=== PATIENT | male | born 1935 | race Caucasian/White ===

== ENCOUNTER 2016-11-03 | Inpatient (IN) | payer OTHER ==
[~2016-11-03] VITALS: Ht 177.8 cm; Wt 122.0 kg
[~2016-11-03] MED LIST: ALDACTONE25 MG PO; AMBIEN10 MG; AMBIEN10 MG PO; APRESOLINE; APRESOLINE50 MG PO; ASPIR 8181 MG; ASPIRIN81 M2 PO; AVAPRO300 MG; AVAPRO300 MG PO; BYSTOLIC10 MG; BYSTOLIC10 MG PO; CARBIDOPA-LEVO1 EAC3; CARBIDOPA/LEVO1 EACH PO; CATAPRES0.2 MG PO; CATAPRES0.3 MG; CELEXA20 MG PO; CITALOPRAM HBR20 M1; FISH OIL SOFTG1 EACH; GLYCOLAX17 GM; IMDUR60 MG; IMDUR60 MG PO; KLOR-CON 1010 MEQ; LASIX40 MG; LASIX40 MG PO; LEVAQUIN500 MG PO; LOW DOSE ASPIRI81 M2 PO; METHIMAZOLE10 MG; METHIMAZOLE10 MG PO; METHIMAZOLE5 MG PO; MIRALAX17 GM PO; NITROSTAT0.4 MG; NITROSTAT0.4 MG SL; PRESERVISION T1 EACH PO; VITAMIN D1000 INTUN PO; ZOCOR40 MG; ZOCOR40 MG PO
[2016-11-03 00:48] LABS: EOSINOPHIL (%) 0 % (0-5); HEMATOCRIT 34.6 % (38.0-50.0); IMMATURE GRANULOCYTE (%) 1.2 % (0.0-0.7); IMMATURE GRANULOCYTE COUNT 0.2 K/uL; LYMPHOCYTE COUNT 0.5 K/uL (1.0-2.8); MCHC 33.5 G/DL (30.0-36.0); MCV 95.3 FL (86-99); MEAN PLAT.VOLUME 10.9 uM^3 (9.0-12.4); MONOCYTE (%) 4.7 % (3-12); MONOCYTE COUNT 0.8 K/uL (0-0.8); NEUTROPHIL (%) 90.8 % (45-76); PLATELET COUNT 118 K/uL (156-360); RBC DIS.WIDTH-CV 13.2 % (11.8-14.6); RBC DIS.WIDTH-SD 46.2 % (39-53); RED BLOOD COUNT 3.63 M/uL (4.00-5.50); WHITE BLOOD COUNT 17.6 K/uL (4.1-10.2)
[2016-11-03 00:51] LABS: BASE EXCESS 2.8 mEq/L (-3 to +3); BICARBONATE 27.9 mEq/L (22-26); CARBOXY HGB 2.1 % (0-5); METHEMOGLOBIN 1.2 % (0-1.5); PCO2 44 mm Hg (35-45); pH 7.41 (7.35-7.45)
[2016-11-03 00:54] LABS: PO2 34 mm Hg (80-100)
[2016-11-03 00:55] LABS: COMMENTS - BLOOD GASES VENOUS(MD AWARE) C+; DEVICE 840 VENT; FI02 60 %; MODE SPONT NIPPV; PEEP 5 CM/H20; PRES. SUPPORT 12 CM/H2O; SITE RR; TOTAL RESP RATE 30 resp/min
[2016-11-03 00:59] LABS: CHLORIDE 103 mEq/L (99-109); POTASSIUM 3.9 mEq/L (3.7-5.4); SODIUM 138 mEq/L (136-147)
[2016-11-03 01:00] LABS: GLUCOSE 151 mg/dL (70-99)
[2016-11-03 01:02] LABS: ANION GAP 10 MEQ/L (2-14)
[2016-11-03 01:04] LABS: GFR ESTIMATE (CALCULATED) 42 mL/min/
[2016-11-03 01:05] LABS: UREA NITROGEN (BUN) 32 mg/dL (9-23)
[2016-11-03 01:10] LABS: TROP-I INTERPRETATION NEGATIVE; TROPONIN-I 0.09 ng/mL (0.0-0.30)
[2016-11-03] MEDS ORDERED: LO-DOSE ASPIRIN81 M2 PO (01:44)
[2016-11-03] MEDS ORDERED: CARBIDOPA/LEVO1 EACH PO (01:45)
[2016-11-03] MEDS ORDERED: CLONIDINE HCL0.2 MG PO (01:46)
[2016-11-03] MEDS ORDERED: MYRBETRIQ25 MG PO (01:49)
[2016-11-03 11:14] VITALS: BP 123/64
[2016-11-03 13:22] LABS: TROP-I INTERPRETATION INDETERMINATE; TROPONIN-I 0.44 ng/mL (0.0-0.30)
[2016-11-03 15:29] VITALS: BP 154/78
[2016-11-03 19:10] LABS: TROP-I INTERPRETATION INDETERMINATE; TROPONIN-I 0.37 ng/mL (0.0-0.30)
[2016-11-03 20:11] VITALS: BP 124/58
[2016-11-04] VITALS: BP 133/64
[2016-11-04 04:00] VITALS: BP 103/65
[2016-11-04 07:38] LABS: HEMATOCRIT 33.7 % (38.0-50.0); MCH 31.2 PG (29.0-34.0); MCV 97.4 FL (86-99); MEAN PLAT.VOLUME 11.5 uM^3 (9.0-12.4); PLATELET COUNT 114 K/uL (156-360); RBC DIS.WIDTH-CV 13.6 % (11.8-14.6); RBC DIS.WIDTH-SD 48.9 % (39-53); RED BLOOD COUNT 3.46 M/uL (4.00-5.50); WHITE BLOOD COUNT 13.7 K/uL (4.1-10.2)
[2016-11-04 07:47] LABS: ALKALINE PHOSPHATASE 58 IU/L (3-129); ANION GAP 10 MEQ/L (2-14); CHLORIDE 101 MEQ/L (99-109); GFR ESTIMATE (CALCULATED) 37 mL/min/; POTASSIUM 4.1 MEQ/L (3.7-5.4); SAMPLE HEMOLYSIS CHECK 0; SAMPLE ICTERIC CHECK 0; SAMPLE LIPEMIA CHECK 0; SODIUM 140 MEQ/L (136-147); TOTAL BILIRUBIN 1.2 MG/DL (0.0-1.0); UREA NITROGEN (BUN) 31 mg/dL (9-23)
[2016-11-04 07:53] LABS: GLUCOSE 102 mg/dL (70-99)
[2016-11-04 07:54] VITALS: BP 113/65
[2016-11-04 16:01] VITALS: BP 94/60
[2016-11-04 20:05] VITALS: BP 114/68
[2016-11-05 01:10] VITALS: BP 121/73
[2016-11-05 04:00] VITALS: BP 114/74
[2016-11-05 07:51] VITALS: BP 123/76
[2016-11-05 12:21] VITALS: BP 136/78
[2016-11-05 16:01] VITALS: BP 120/77
[2016-11-05 20:00] VITALS: BP 155/81
[2016-11-06 00:49] VITALS: BP 111/72
[2016-11-06 04:00] VITALS: BP 123/74
[2016-11-06 07:30] LABS: ANION GAP 9 MEQ/L (2-14); CHLORIDE 102 MEQ/L (99-109); GFR ESTIMATE (CALCULATED) 39 mL/min/; GLUCOSE 105 mg/dL (70-99); POTASSIUM 3.8 MEQ/L (3.7-5.4); SAMPLE HEMOLYSIS CHECK 0; SAMPLE ICTERIC CHECK 0; SAMPLE LIPEMIA CHECK 0; SODIUM 140 MEQ/L (136-147); UREA NITROGEN (BUN) 35 mg/dL (9-23)
[2016-11-06] MEDS ORDERED: LEVAQUIN500 MG PO (07:44)
[2016-11-06] MEDS ORDERED: ELIQUIS2.5 MG PO (07:44)
[2016-11-06] MEDS ORDERED: IMDUR30 MG PO (07:45)
[2016-11-06] MEDS ORDERED: NITROSTAT0.4 MG SL (07:47)
[2016-11-06 07:48] LABS: HEMATOCRIT 30.8 % (38.0-50.0); MCH 31.4 PG (29.0-34.0); MCHC 32.5 G/DL (30.0-36.0); MCV 96.9 FL (86-99); MEAN PLAT.VOLUME 11.2 uM^3 (9.0-12.4); PLATELET COUNT 134 K/uL (156-360); RBC DIS.WIDTH-CV 13.2 % (11.8-14.6); RBC DIS.WIDTH-SD 47.7 % (39-53); RED BLOOD COUNT 3.18 M/uL (4.00-5.50)
[2016-11-06] MEDS ORDERED: LOSARTAN POTAS100 MG PO (07:53)
[2016-11-06 08:01] LABS: WHITE BLOOD COUNT 8.9 K/uL (4.1-10.2)
[2016-11-06 08:04] VITALS: BP 160/78
[2016-11-06] MEDS ORDERED: IMDUR60 MG PO (11:59)
== END 2016-11-06 13:05 | DRG 189 ==
LOC: EME → EDBD → EDOF 08:03 → 5SOUTH 08:03 → EDOF 08:59 → 5SOUTH 11:05
PROVIDERS: Emergency Medicine; Internal Medicine
PROC: 5A09357 Assistance with Respiratory Ventilation, Less than 24 Consecutive Hours, Continuous Positive Airway Pressure (ICD-10-PCS; principal; 2016-11-03)
DX: J96.01 Acute respiratory failure with hypoxia (principal); J18.1 Lobar pneumonia, unspecified organism; I13.0 Hypertensive heart and chronic kidney disease with heart failure and stage 1 through stage 4 chronic kidney disease, or unspecified chronic kidney disease; I50.33 Acute on chronic diastolic (congestive) heart failure; N18.3 Chronic kidney disease, stage 3 (moderate); I95.2 Hypotension due to drugs; T46.5X5A Adverse effect of other antihypertensive drugs, initial encounter; I48.0 Paroxysmal atrial fibrillation; E66.01 Morbid (severe) obesity due to excess calories; Z68.41 Body mass index [BMI] 40.0-44.9, adult; D64.9 Anemia, unspecified; D69.6 Thrombocytopenia, unspecified; G20 Parkinson's disease; I25.10 Atherosclerotic heart disease of native coronary artery without angina pectoris; I25.2 Old myocardial infarction; I25.5 Ischemic cardiomyopathy; Z95.1 Presence of aortocoronary bypass graft; Z66 Do not resuscitate; Z87.891 Personal history of nicotine dependence; Z91.81 History of falling
CPT/HCPCS: 36600; 71010; 71250; 80048; 80053; 82803; 83605; 83880; 84443; 84484; 85025; 85027; 87040; 87070; 87205; 93005; 93306; 94002; 94640; 94799; 99202; 99281; 99285; J1644; J1956; J2543; J7050